=== PATIENT | female | born 1995 | race Caucasian/White ===

== ENCOUNTER 2022-04-18 17:50 | Emergency (ER) | payer OTHER ==
[2022-04-18] MEDS ORDERED: Lactated Ringers 1,000 ML IV ONE ×2 (19:39→19:50)
[2022-04-18] MEDS ORDERED: cefTRIAXone 2 GM in Sodium Chloride 0.9% 100 ML IV ONE ×2 (21:42→21:50)
[2022-04-18] MEDS ORDERED: Sodium Chloride 0.9% 1,000 ML IV SCH (21:45)
[2022-04-18] MEDS ORDERED: Sodium Chloride 0.9% 1,000 ML IV ONE (21:50)
== END 2022-04-18 22:45 | disposition home or self-care (01) ==
LOC: JD.ED 17:50
DX: O23.43 Unspecified infection of urinary tract in pregnancy, third trimester (principal); N39.0 Urinary tract infection, site not specified; Z88.0 Allergy status to penicillin; Z3A.29 29 weeks gestation of pregnancy
CPT/HCPCS: 36415; 81001; 85025; 86308; 87086; 87088; 87186; 87651; 96361; 96365; 99283; J0696; J7030; J7120; 99284